=== PATIENT | female | born 1940 | race Caucasian/White ===

== ENCOUNTER 2019-04-06 20:37 | Emergency (ER) | payer MEDICARE, MEDICAID ==
--- NOTE | 2019-04-06 20:48 | EDM.PDOC ---
ED HPI GENERAL MEDICAL PROBLEM - General Stated Complaint: FELL Time Seen by Provider: 04/06/19 20:41 Source of Information: Reports: Patient History Limitations: Reports: No Limitations - History of Present Illness INITIAL COMMENTS - FREE TEXT/NARRATIVE: pt comes from home with c/o right knee pain, states early this morning she stumbled at her kitchen falling forward and landing on her knees and forehead, denies any LOC, c/o right knee pain since then , denies any other injuries or any other medical concerns. RIGHT KNEE Pain Score (Numeric/FACES): 10 - Related Data Allergies Allergy/AdvReac Type Severity Reaction Status Date / Time No Known Allergies Allergy Verified 04/06/19 20:55 Home Meds: Home Meds Aspirin 81 mg PO DAILY 04/06/19 [History] ED ROS GENERAL - Review of Systems Review Of Systems: Unable To Obtain HEENT: Reports: No Symptoms Respiratory: Reports: No Symptoms Cardiovascular: Reports: No Symptoms GI/Abdominal: Reports: No Symptoms Neurological: Reports: No Symptoms ED EXAM, GENERAL - Physical Exam Exam: See Below Exam Limited By: No Limitations General Appearance: Alert, Moderate Distress Nose: Normal Inspection Throat/Mouth: Normal Inspection Head: Other (an abraision noted over the right side of the forehead. ) Neck: Normal Inspection, Supple Respiratory/Chest: No Respiratory Distress, Lungs Clear, Normal Breath Sounds Cardiovascular: Normal Peripheral Pulses, Regular Rate, Rhythm GI/Abdominal: Normal Bowel Sounds, Soft, Non-Tender Extremities: Normal Inspection, Normal Range of Motion Course - Vital Signs Text/Narrative:: did not see acute injuries at her xrays. an MINDY was applied and supportive mng for knee contusion injury was recommended. Rx on percocet was given. Last Recorded V/S: Last Vital Signs Temp 37.1 C 04/06/19 20:40 Pulse 96 04/06/19 20:40 Resp 19 04/06/19 20:40 BP 182/86 H 04/06/19 20:40 Pulse Ox 97 04/06/19 20:40 - Orders/Labs/Meds Orders: Active Orders 24 hr Category Date Time Status Knee 3V Rt [CR] Stat Exams 04/06/19 20:50 Ordered Meds: Medications Discontinued Medications Generic Name Dose Route Start Last Admin Trade Name Freq PRN Reason Stop Dose Admin Oxycodone/Acetaminophen 1 tab 04/06/19 20:50 04/06/19 21:16 Percocet 325-5 Mg PO 04/06/19 20:51 1 tab ONETIME ONE Administration Departure - Departure Time of Disposition: 21:44 Disposition: Home, Self-Care 01 Condition: Fair Clinical Impression: Knee contusion - Discharge Information - My Orders Last 24 Hours: My Active Orders 04/06/19 20:50 Knee 3V Rt [CR] Stat - Assessment/Plan Last 24 Hours: My Active Orders 04/06/19 20:50 Knee 3V Rt [CR] Stat
[2019-04-06] MEDS ORDERED: Acetaminophen/oxyCODONE 325-5 MG Tab PO ONE (20:50)
--- NOTE | 2019-04-07 11:10 | CR ---
INDICATION: Right knee pain. RIGHT KNEE: Frontal, two lateral views, and a patellar sunrise view of the right knee were obtained 04/06/19 - no comparisons. A fracture or dislocation was not identified. Overall bone density may be somewhat diminished, raising question of osteoporosis - correlate clinically. Patellofemoral and femorotibial joint spaces appear to be well-maintained. There is a bulge at the suprapatellar bursa, compatible with a knee joint effusion - correlate clinically. IMPRESSION: 1. No definite acute fracture or dislocation. 2. Possible osteoporosis - correlate clinically. 3. Suggestion of a moderate sized knee joint effusion. MTDD
== END 2019-04-06 22:10 | disposition home or self-care (01) ==
LOC: FB.ED 20:37
DX: S80.01XA Contusion of right knee, initial encounter (principal); S00.81XA Abrasion of other part of head, initial encounter; Z79.82 Long term (current) use of aspirin; W19.XXXA Unspecified fall, initial encounter
CPT/HCPCS: 73562; 99284; A9270; 99283

== ENCOUNTER 2020-06-07 15:31 | Emergency (ER) | payer MEDICARE, MEDICAID ==
--- NOTE | 2020-06-07 15:45 | EDM.PDOC ---
ED HPI GENERAL MEDICAL PROBLEM - General Stated Complaint: UTI?? Time Seen by Provider: 06/07/20 15:33 Source of Information: Reports: Patient History Limitations: Reports: No Limitations - History of Present Illness INITIAL COMMENTS - FREE TEXT/NARRATIVE: c/o UTI pt states she has had dysuria x 4d, unable to get a ride to clinic, comes to ED via EMS never had a UTI in past moved to apartment in [place] 4d ago, had been in [place], daughter lives in [place] says she has not seen a doctor for regular health care, last saw a physician 1y ago after a fall and knee injury only meds are ASA 325 mg/d and MIV qd smoked 1-1.5 ppd, "sometimes more, depending on what I feel like" says she "drinks a lot of coffee" as has pain in her tailbone, no injury, using OTC Icy-Hot ointment which she th inks is helping altho skin intact no prior labs or urine culture in [facility] tailbone Pain Score (Numeric/FACES): 8 - Related Data Allergies Allergy/AdvReac Type Severity Reaction Status Date / Time No Known Allergies Allergy Verified 04/06/19 20:55 Home Meds: Home Meds Acetaminophen/oxyCODONE [Percocet 325-5 MG] 1 each PO Q6H PRN #20 tab 04/06/19 [Rx] Aspirin 81 mg PO DAILY 04/06/19 [History] Sulfamethoxazole/Trimethoprim [Sulfamethoxazole-Tmp Ds Tablet] 1 each PO BID #10 tablet 06/07/20 [Rx] Past Medical History Cardiovascular History: Reports: Hypertension Other Cardiovascular History: edema, Reynaud's Disease INFORMATICS PHARMACIST History: Reports: Neurological History: Reports: TIA Social & Family History - Family History Family Medical History: Unobtainable - Caffeine Use Caffeine Use: Reports: Coffee ED ROS GENERAL - Review of Systems Review Of Systems: See Below Constitutional: Reports: No Symptoms HEENT: Reports: No Symptoms Respiratory: Reports: No Symptoms Cardiovascular: Reports: No Symptoms Endocrine: Reports: No Symptoms GI/Abdominal: Reports: No Symptoms : Reports: Dysuria Musculoskeletal: Reports: Other (coccyx pain) Skin: Reports: No Symptoms Neurological: Reports: No Symptoms Psychiatric: Reports: No Symptoms Hematologic/Lymphatic: Reports: No Symptoms Immunologic: Reports: No Symptoms ED EXAM, GENERAL - Physical Exam Exam: See Below Exam Limited By: No Limitations General Appearance: Alert, WD/WN, No Apparent Distress Head: Atraumatic, Normocephalic Neck: Normal Inspection, Supple, Non-Tender, Full Range of Motion. No: Lymphadenopathy (R), Lymphadenopathy (L) Respiratory/Chest: No Respiratory Distress, Lungs Clear, Normal Breath Sounds Cardiovascular: Regular Rate, Rhythm, No Edema, No Murmur GI/Abdominal: Soft, Non-Tender, No Distention Back Exam: Normal Inspection, Full Range of Motion, NT Extremities: Normal Inspection, Normal Range of Motion, Non-Tender, No Pedal Edema Neurological: Alert, Oriented, CN II-XII Intact, Normal Cognition, No Motor/Sensory Deficits Psychiatric: Normal Affect, Normal Mood Skin Exam: Warm, Dry, Intact, Normal Color, No Rash Lymphatic: No Adenopathy Course - Vital Signs Last Recorded V/S: Last Vital Signs Temp 36.6 C 06/07/20 15:31 Pulse 103 H 06/07/20 15:31 Resp 18 06/07/20 15:31 BP 188/87 H 06/07/20 15:31 Pulse Ox 100 06/07/20 15:31 - Orders/Labs/Meds Orders: Active Orders 24 hr Category Date Time Status CULTURE URINE [RM] Stat Lab 06/07/20 15:49 Received Labs: Laboratory Tests 06/07/20 Range/Units 15:49 Urine Color Yellow (YELLOW) Urine Appearance Slightly cloudy (CLEAR) Urine pH 7.0 H (5.0-6.5) Ur Specific [place] 1.010 (1.010-1.025) Urine Protein Negative (NEGATIVE) mg/dL Urine Glucose (UA) Normal (NORMAL) mg/dL Urine Ketones 15 H (NEGATIVE) mg/dL Urine Occult Blood Negative (NEGATIVE) Urine Nitrite Negative (NEGATIVE) Urine Bilirubin Negative (NEGATIVE) Urine Urobilinogen 1 H (NEGATIVE) mg/dL Ur Leukocyte Esterase Small H (NEGATIVE) Urine RBC 0-5 (0-5) Urine WBC 5-10 H (0-5) Ur Squamous Epith Cells Moderate H (NS,R,O) Urine Bacteria Moderate H (NS) Departure - Departure Time of Disposition: 16:50 Disposition: Home, Self-Care 01 Condition: Good Clinical Impression: Dysuria, Mild dehydration, Elevated blood pressure reading, Current smoker, Contusion of coccyx - Discharge Information *PRESCRIPTION DRUG MONITORING PROGRAM REVIEWED*: Not Applicable *COPY OF PRESCRIPTION DRUG MONITORING REPORT IN PATIENT DAWIT: Not Applicable Prescriptions: Sulfamethoxazole/Trimethoprim [Sulfamethoxazole-Tmp Ds Tablet] 1 each PO BID #10 tablet Instructions: Urinary Tract Infection, Adult, Hypertension, Adult, Tobacco Use Disorder, Tailbone Injury Referrals: PCP,None [Primary Care Provider] - Additional Instructions: For possible bladder infection, take sulfa antibiotic 2 times a day for 5 days. For mild dehydration, increase fluids. For increased blood pressure, you may need medication. Stop smoking as soon as possible. See a primary care provider in one week for additional tests and recommendations. Call your Physician or Return to Emergency Department if: * Your condition worsens in any way. * You develop fever greater than 100.4. * You have vomiting that does not stop with medications. * You have pain that is not controlled with medications. Sepsis Event Note (ED) - Focused Exam Vital Signs: Vital Signs Temp Pulse Resp BP Pulse Ox 06/07/20 15:31 36.6 C 103 H 18 188/87 H 100 - My Orders Last 24 Hours: My Active Orders 06/07/20 15:49 CULTURE URINE [RM] Stat - Assessment/Plan Last 24 Hours: My Active Orders 06/07/20 15:49 CULTURE URINE [RM] Stat
[2020-06-07] MEDS ORDERED: Sulfamethoxazole/Trimethoprim 800-160 MG Tab PO ONE (17:26)
[2020-06-07] MEDS ORDERED: Acetaminophen 500 MG Tab PO ONE (18:04)
[2020-06-07] MEDS ORDERED: Labetalol 20 MG/4 ML Syringe ONE (20:13)
[2020-06-07] MEDS ORDERED: Labetalol 100 MG in Sodium Chloride 0.9% 80 ML IV ONE (20:15)
[2020-06-07] MEDS ORDERED: Labetalol 100 MG in Sodium Chloride 0.9% 80 ML IV SCH (20:15)
[2020-06-07] MEDS ORDERED: Sodium Chloride 0.9% 0 ML ONE (20:19)
[2020-06-07] MEDS ORDERED: Sodium Chloride 0.9% 100 ML ONE (20:24)
== END 2020-06-07 20:41 ==
LOC: FB.ED 15:31
DX: S30.0XXA Contusion of lower back and pelvis, initial encounter (principal); R30.0 Dysuria; E86.0 Dehydration; F17.210 Nicotine dependence, cigarettes, uncomplicated; I10 Essential (primary) hypertension; Z79.82 Long term (current) use of aspirin; Z86.73 Personal history of transient ischemic attack (TIA), and cerebral infarction without residual deficits; X58.XXXA Exposure to other specified factors, initial encounter
CPT/HCPCS: 36415; 70450; 80053; 81001; 85025; 86140; 87086; 87088; 87186; 93005; 96374; 99285; A9270; J3490; J7050

== ENCOUNTER 2020-06-16 13:39 | Inpatient (IN) | payer MEDICARE, MEDICAID ==
[2020-06-17] MEDS ORDERED: [UNRECOGNIZED DRUG - OTHER] PO SCH (15:15)
--- NOTE | 2020-06-17 17:15 | HP ---
ADMISSION DATE: 06/17/2020 REASON FOR ADMISSION: Post hospital followup subarachnoid hemorrhage. HISTORY OF PRESENT ILLNESS: Donna Cr is a 80-year-old female admitted to swing bed at [facility] from [facility] in [place]. She was admitted on 06/07/2020 to [facility] in [place]. She was transferred due to spontaneous moderately asymptomatic subarachnoid hemorrhage. She had been initially seen for urinary tract infection, developed a complicated headache, brought to the clinic. CAT scan revealed a subarachnoid hemorrhage and was transferred to [facility] for intervention. CTA head and neck revealed no obvious vascular abnormalities, displaying the subarachnoid hemorrhage. She was seen, evaluated, treated, was seen by Interventional Radiology, Neurologic Critical Care, Physical Therapy, Neurology, and adult hospitalist. At the time of discharge, she was comfortable and feeling reasonably well. She was admitted to [facility] for ongoing rehab care. MEDICATIONS: Admission daily medications include: 1. Nicoderm patch 14 mg daily, declined. 2. Carvedilol 6.25 mg 1 p.o. b.i.d. 3. Sodium chloride 2 tablets 3 times a day. ALLERGIES: No medication, environmental, or latex allergies. PAST MEDICAL HISTORY: Significant for no previous surgical procedure, operative intervention, chronic illnesses, unusual childhood diseases, major injuries, or fractures. SOCIAL HISTORY: Lives in an apartment in [place], is . 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 She has had 4 children; one child at 3 days of age, a son, a daughter in her 30s of lymphoma. One pack per day smoker. No chewing. No alcohol. No vaping. No illicit drug use. FAMILY HISTORY: Negative for early heart disease, diabetes mellitus, or inheritable cancer. REVIEW OF SYSTEMS: CONSTITUTIONAL: Feeling generally well. Uses a walker. HEENT: Eyes: Sees well by report. Ears: Hears well, some difficulty in crowds. Oropharynx: Has upper denture. CARDIOVASCULAR: Denies chest pain, palpitations, or syncope. RESPIRATORY: No chronic cough, wheeze, or congestion. GASTROINTESTINAL: Regular predictable stools. GENITOURINARY: Good voiding pattern. No blood in urine. SKIN: No lesions, eruptions, or moles. ENDOCRINE: No excessive thirst or urination. ALLERGIES: Noted. PSYCHIATRIC: Mood stable. PHYSICAL EXAMINATION: VITAL SIGNS: Stable. GENERAL: Elderly, cooperative, conversant. Gives a good history. HEENT: Funduscopic benign. Bright TMs. Clear nasal discharge. Mouth and oropharynx clear. Dentition absent. NECK: Benign. Thyroid small. CHEST: Clear to all lung ulloa. No adventitious sounds. HEART: No ectopy or murmur. BREASTS: Declined, deferred. ABDOMEN: Benign. No hepatosplenomegaly. Moderately obese. No surgical scars. PELVIC AND RECTAL: Deferred. EXTREMITIES: Well perfused. NEUROLOGICAL: The patient is orientated to time, place, and person. Cranial nerves 2 through 12 are intact. Gait not tested. ASSESSMENT: Follow up subarachnoid hemorrhage. Cleared by CT scan. Medications for subarachnoid hemorrhage onboard. PLAN: PT, OT, medications, care, and treatment. Regular diet. No complicating issues. Expect a short-term stay. /[id number] HANNAH/DELMAR
[2020-06-17] MEDS: Carvedilol 6.25 MG Tab PO SCH (20:31)
[2020-06-17] MEDS: Sodium Chloride 1 GM Tab PO SCH (20:48)
[2020-06-17] MEDS: Acetaminophen 325 MG Tab PO PRN (22:45)
[2020-06-18] MEDS: Sodium Chloride 1 GM Tab PO SCH ×3 (08:28→20:03)
[2020-06-18] MEDS: Carvedilol 6.25 MG Tab PO SCH ×2 (08:28→20:07)
[2020-06-18] MEDS ORDERED: Celecoxib 200 MG Cap PO SCH (10:15)
--- NOTE | 2020-06-18 10:42 | PN ---
DATE SEEN: 06/18/2020 SUBJECTIVE: Donna Cr over swing bed stay, was transferred from [place]. She sustained a subarachnoid bleed with clear resolution. Medications on board include carvedilol and salt tablets only. Had a good day, up and about. Back pain, primary issue. Had a complicated night with marked swelling of her bedding and incontinence through the night. Uncertain reason. Primary issue is low back pain, worse with activity, movement, and turning. No recent radiographs. OBJECTIVE: VITAL SIGNS: 36.7, 80, 151/74, 18, 95%. GENERAL: Appears comfortable. NECK: Benign. Thyroid small. CHEST: Clear all lung ulloa. HEART: Occasional ectopy, soft murmur. ABDOMEN: Rotund. BACK: Localized pain, lower lumbar spine. ASSESSMENT: Complicated back pain, resolved; subarachnoid hemorrhage. PLAN: PT, OT referral on board. We will start tomorrow. We will start Celebrex 200 mg 1 p.o. b.i.d. and plain radiographs of her lumbar spine to be performed. /[id number] HANNAH/DELMAR
[2020-06-18] MEDS ORDERED: Celecoxib 100 MG Cap ONE (10:52)
[2020-06-18] MEDS: Celecoxib 100 MG Cap PO SCH ×2 (10:59→20:07)
[2020-06-18] MEDS: Acetaminophen 325 MG Tab PO PRN (20:02)
[2020-06-19] MEDS: Carvedilol 6.25 MG Tab PO SCH ×2 (09:10→21:00)
[2020-06-19] MEDS: Sodium Chloride 1 GM Tab PO SCH ×3 (09:10→20:50)
[2020-06-19] MEDS: Celecoxib 200 MG Cap PO SCH ×2 (09:11→20:51)
--- NOTE | 2020-06-19 11:14 | CR ---
INDICATION: Back pain. LUMBOSACRAL SPINE: Four images of the lumbosacral spine were obtained 06/18/20 - no comparisons. Diminished bone density is noted compatible with osteoporosis. Superior endplate compression and minimal anterior vertebral body volume loss is noted at the L4 level with minimal cranial endplate loss and very minimal anterior vertebral body volume loss at L3. These could represent new fracture sites, but are indeterminate in age. No definite acute fracture site was seen. No dislocation was seen. The pedicles appear to be grossly intact. Intervertebral disk spaces appear to be fairly well maintained. There is tilt of the spine to the left which appears to be centered at L3-4. Sacroiliac joints appear to be fairly intact with some minimal degenerative change present. Calcifications are noted. in the abdominal aorta and iliac arteries. IMPRESSION: 1. Relatively minimal hypertrophic degenerative, but there are osteoporotic compressions at L3 and especially L4, these are of indeterminate age. 2. Slight tilt of the spine. 3. ASD. MTDD
--- NOTE | 2020-06-19 12:22 | PN ---
DATE SEEN: 06/19/2020 SUBJECTIVE: Donna Cr is a delightful -[id number] female admitted with weakness of fall, was found to have a complicated urinary tract infection with positive blood cultures x4. Gregory catheter has been removed. She has made transition from ceftriaxone to oral Macrobid. Otherwise, doing well. LABORATORY STUDIES: Creatinine 2.2 to 2.1, GFR from 21 to 22. PHYSICAL EXAMINATION: VITAL SIGNS: 65 kg, pulse 70, 156/70, 94% on 1 L. GENERAL: Bright, alert, awake, appropriate. NECK: No JVD. CHEST: On auscultation, clear lung ulloa. HEART: Distant heart sounds. Soft murmur. Occasional ectopy. ABDOMEN: Rotund. ASSESSMENT: 1. Complicated urosepsis. 2. Persistent weakness. PLAN: Swing bed given as a consideration, we will plan accordingly. Plan is to return to [facility]. We will consult their staff accordingly. /[id number] HANNAH/DELMAR
--- NOTE | 2020-06-19 12:32 | PN ---
DATE SEEN: 06/19/2020 SUBJECTIVE: Donna Cr is a 80-year-old female transferred from [facility] to [facility]. Had an intracranial bleed. Most recent CT at discharge revealed absence of blood. Discharged home on minimal medications including stool softeners, carvedilol, and sodium chloride tablets. We will check a panel 8. Staff requests a speech eval for cognition and linguistics. Returning home an opportunity, [facility] had been on the discussion. Daughter will be involved as treatment care giving. Voices primary issues of low back pain, sternal pain, and lumbar low back pain. Radiographs revealed moderate DJD. Radiologist report to follow. MEDICATIONS: Reviewed and appropriate. PHYSICAL EXAMINATION: VITAL SIGNS: 36.2, 70, 144/80, 18, 94% on room air. GENERAL: Talkative, appropriate. NECK: Benign. Thyroid small. CHEST: Clear in all lung ulloa. Decreased breath sounds in both bases. Some coarse rhonchi, clear with cough. HEART: No ectopy or murmur. ABDOMEN: Benign. IMPRESSION: 1. Intracranial bleed, resolved. 2. Chronic obstructive pulmonary disease. 3. Degenerative joint disease, back. PLAN: Celebrex on board. Discussed implications and concerns. We will check a panel 8 today. /[id number] HANNAH/DELMAR
[2020-06-19] MEDS: Acetaminophen 325 MG Tab PO PRN (22:03)
[2020-06-20] MEDS: Carvedilol 6.25 MG Tab PO SCH ×2 (09:37→20:40)
[2020-06-20] MEDS: Celecoxib 200 MG Cap PO SCH ×2 (09:37→20:41)
[2020-06-20] MEDS: Sodium Chloride 1 GM Tab PO SCH ×3 (09:37→20:40)
[2020-06-20] MEDS: Acetaminophen 325 MG Tab PO PRN ×3 (09:44→23:57)
--- NOTE | 2020-06-20 11:37 | CR ---
INDICATION: Low back/sacral pain. SACROILIAC JOINTS: Three views of the sacroiliac joints were obtained and revealed no adequate oblique views of the sacroiliac joints with two AP views of the sacroiliac joints revealing mild hypertrophic degenerative changes on the left and minimal degenerative changes on the right. Sacroiliac joints were otherwise unremarkable, except to note demineralization. If occult bony abnormality is suspected clinically, nuclear bone imaging or possibly CT examination may be helpful further examination. MTDD
--- NOTE | 2020-06-20 12:34 | PN ---
DATE SEEN: 06/20/2020 SUBJECTIVE: Donna Cr is 80 years of age, seen today for review. Had a subarachnoid bleed. Resolved. Home medications were adjusted. Primary issue is her low back pain. Radiographs performed on 06/18/2020, interpreted by Radiology revealed minimally degenerative changes with compression fracture of L3 and L4, undetermined age. Pain with prolonged sitting, standing, and activity. Denies radicular pain. LABORATORY STUDIES: On 06/19/2020, electrolytes satisfactory. PHYSICAL EXAMINATION: VITAL SIGNS: 36.2, 70, 144/80, 18, and 94%. GENERAL: Appears comfortable. Speech is fluent. Antalgic gait. NECK: Benign. Thyroid small. CHEST: On auscultation, clear in all lung ulloa. HEART: Occasional ectopy. Soft murmur. ABDOMEN: Benign. ASSESSMENT: Subarachnoid hemorrhage and sequelae. PLAN: Continue PT/OT. Expect short-term stay. Caregiver daughter upon discharge. /[id number] /DELMAR
[2020-06-21] MEDS: Acetaminophen 325 MG Tab PO PRN ×2 (06:53→14:53)
[2020-06-21] MEDS: Celecoxib 200 MG Cap PO SCH (09:00)
[2020-06-21] MEDS: Carvedilol 6.25 MG Tab PO SCH (09:00)
[2020-06-21] MEDS: Sodium Chloride 1 GM Tab PO SCH ×2 (09:00→14:53)
--- NOTE | 2020-06-21 11:04 | PN ---
DATE SEEN: 06/21/2020 SUBJECTIVE: Donna Cr is a 80-year-old female admitted for post intervention. Had an intracranial bleed without major pathology, was treated medically. She had declined some interventions and testing. Doing well since that time. Primary issues are back pain and spasm. The plan is to return home, care services of 2 daughters. PHYSICAL EXAMINATION: VITAL SIGNS: Stable, 36.9, 65, 145/74, 18, and 96%. GENERAL: Outspoken certainly with a primary issue of back pain. HEENT: Mouth and oropharynx clear. NECK: Benign. Thyroid small. CHEST: On auscultation, clear in all lung ulloa. HEART: Occasional ectopy, soft murmur. ABDOMEN: Benign. ASSESSMENT: Intracranial bleed, stable. PLAN: She is on salt tablets, long-term issue uncertain, we will continue accordingly. Expect a short-term stay. /[id number] HANNAH/DELMAR
--- NOTE | 2020-06-22 11:46 | DISCH ---
DISCHARGE DATE: 06/21/2020 HOSPITAL COURSE: Donna Cr is a 80-year-old female admitted to swing bed from [place]. She had spontaneous subarachnoid bleed. Etiology was undetermined. Reviewing the records, she declined some of the diagnostic tests that were felt to be important. Upon discharge, blood had resolved. She was admitted. PT/OT was actively involved, ambulating. Medications were adjusted. Pain control adjustments particularly with low back pain. Plain radiographs revealed degenerative changes but no suspicion for neurological issue. She has ambulated, active, walking independent, and has caregivers of 2 daughters in town. DISCHARGE MEDICATIONS: Please see med recon list. DISCHARGE INSTRUCTION: Followup appointment in 2 weeks' time. /[id number] HANNAH/DELMAR
== END 2020-06-21 18:49 | disposition home or self-care (01) | DRG 57 ==
LOC: FB.MS 06-17 10:55
PROVIDERS: ADMIT Family Medicine; ATTEND Family Medicine
DX: I69.00 Unspecified sequelae of nontraumatic subarachnoid hemorrhage (principal); J44.9 Chronic obstructive pulmonary disease, unspecified; M47.816 Spondylosis without myelopathy or radiculopathy, lumbar region; R53.1 Weakness; F17.210 Nicotine dependence, cigarettes, uncomplicated; Z79.899 Other long term (current) drug therapy
CPT/HCPCS: 36415; 72100; 72202; 80048; 97116-GP; 97161-GP; 97165-GO; 97530-GO; A9270-GY